=== PATIENT | female | born 1985 | race Caucasian/White ===

== ENCOUNTER 2023-04-14 08:38 | Emergency (ER) | payer MEDICAID, SELFPAY ==
[2023-04-14 08:45] VITALS: BP 140/60; PULSE 53; O2SAT 96
[2023-04-14 08:47] VITALS: BP 127/95; PULSE 89; RESP 16; TEMP 36.3; O2SAT 99; BMI 23.6
--- NOTE | 2023-04-14 09:09 | ED_ITS ---
HPI - Back Pain/Injury General Chief Complaint: Back Pain/Injury Stated Complaint: BACK PAIN Time Seen by Provider: 04/14/23 08:50 Source: patient Mode of arrival: ambulatory Limitations: no limitations History of Present Illness HPI Narrative: 37-year-old female presents to the emergency department lower back pain for the past few months worsening acutely over the past few days. Patient reports that this past pain feels like her typical however not going away. She reports it likely started after she bent over to grab something. Patient denies blunt trauma. Denies urinary/bowel incontinence/retention, fevers, chills, lower extremity weakness, nausea, vomiting, abdominal pain, headache, vision changes, chest pain, shortness of breath, fevers and chills. Patient reports she is able to walk however with discomfort Related Data Previous Rx's Medication Instructions Recorded ketorolac 10 mg tablet 10 mg PO TID PRN pain 5 days #15 04/14/23 tabs lidocaine 5 % topical patch 1 patch topical DAILY PRN pain #15 04/14/23 ea Allergies Allergy/AdvReac Type Severity Reaction Status Date / Time Penicillins [PENICILLINS] Allergy Severe RASH Unverified 01/17/20 17:48 Review of Systems Review of Systems: Constitutional : No Weight loss, No Fever, No Chills, ENT/Mouth : No Hearing loss, No Ear Pain, No Nasal Congestion, No Sinus Pain, No Hoarseness, No sore throat, No Rhinorrhea, No Swallowing Difficulty Cardiovascular : No Chest Pain, No SOB Respiratory : No Cough, No Dyspnea Gastrointestinal : No Nausea, No Vomiting, No Diarrhea, No abdominal Pain, No Hematochezia, No Melena Genitourinary : No Dysuria, No Urinary Frequency, No Hematuria, No Urinary Incontinence, Musculoskeletal : positive back pain Skin : No Skin Lesions, No rash Neuro : No Weakness, No Numbness, No Paresthesias, no loss of bowel or bladder incontinence, no saddle anesthesia Yes all other systems are reviewed and are negative [facility] Past Medical History Attestation statement: The following information was validated with the patient. Source: old records reviewed and nursing notes reviewed Social History Social History Advance Directives: No Advance Directives Information Provided: No Physical Exam Vital Signs: Vital Signs: Last Vital Signs Temp 97.3 F 04/14/23 08:47 Pulse 89 04/14/23 08:47 Resp 16 04/14/23 08:47 BP 127/95 H 04/14/23 08:47 Pulse Ox 99 04/14/23 08:47 O2 Del Method Room Air 04/14/23 08:47 BMI result Body Mass Index 23.6 vss Appearance: Alert.? Oriented X3.? No acute distress.? Head: Normocephalic, atraumatic, no step-offs or deformities Eyes: Pupils equal, round and reactive to light.? ENT: Pharynx normal.? Neck: Normal inspection.? Neck supple.? CVS: Normal heart rate and rhythm.? Pulses normal.? Respiratory: No respiratory distress.? Breath sounds normal.? Abdomen: Soft and nontender.? Skin: Skin warm and dry.? Normal skin color.? Normal skin turgor.? Extremities: No lower extremity edema.? No calf ttp. 5/5 strength to bilateral upper and lower extremities Back: No midline tenderness, no C-spine tenderness, full range of motion, no CVA tenderness bilaterally + bilateral lumbar paraspinous tenderness. No midline tenderness Neuro: Oriented X 3.? No motor deficit.? No sensory deficit. CN 2-12 intact . Ambulating with steady gait normal coordination. No foot drop. Normal sensation distally Medications Administered Discontinued Medications Generic Name Dose Route Start Last Admin Trade Name Freq PRN Reason Stop Dose Admin Ketorolac Tromethamine 30 mg 04/14/23 09:08 04/14/23 09:51 Ketorolac Tromethamine 30 Mg/Ml Vial IM 04/14/23 09:09 30 mg ONCE ONE Administration Medical Decision Making Medical Decision Making [facility] Narrative: 0850 37-year-old female presents with lower back pain that is been going on for months, acutely worsening this morning, no associated trauma however it may have started after she bent over to grab something. No red flags and Bilateral lumbar paraspinous tenderness. No midline tenderness. No saddle paresthesias. No foot drop. Normal sensation distally History and physical exam concerning for lumbar sprain or strain. Unlikely cauda equina, epidural abscess, cord compression. Other differentials include lumbago, herniated disc. Plan at this time is to give it pain control the Lidoderm patches. No red flag symptoms no indication for imaging. Differential Diagnosis Differential Diagnoses: The differential diagnosis associated with the presentation includes History and physical exam concerning for lumbar sprain or strain. Unlikely cauda equina, epidural abscess, cord compression. Other differentials include lumbago, herniated disc. Admission/Observation Consideration of admission/observation: Escalation of care including admission/observation considered Tests considered The following testing was considered but not selected: Considered MRI and CT as well as x-ray however no acute trauma no red flag symptoms no signs of cord compression. No indication Critical Care Time Critical Care Time Critical Care Time: No Discharge Plan Discharge Clinical Impression: Strain of lumbar region Patient Disposition: Home, Self-Care Instructions: Muscle Strain (DC), Back Pain (ED), Lower Back Exercises (ED) Additional Instructions: Take your medications as prescribed. If you were prescribed antibiotics today, it is important that you take your medication to their entirety, do not skip any doses, do not finish them early. Follow-up with your primary care provider this week. Return to the emergency department with new or worsening symptoms. Such as fevers, chills, chest pain, shortness of breath, nausea, vomiting, dizziness, headache, vision changes, lethargy In case of emergency call 911 Prescriptions: New ketorolac 10 mg tablet 10 mg PO TID PRN (Reason: pain) 5 Days Qty: 15 0RF lidocaine 5 % adhesive patch,medicated 1 patch topical DAILY PRN (Reason: pain) Qty: 15 0RF Rx Instructions: leave on most painful area for up to 12 hrs Referrals: ED Physician,Generic [Physician] - 2 days Stand Alone Forms: Work/School Release
[2023-04-14] MEDS: Ketorolac Tromethamine 30 MG/ML VIAL IM (09:51)
--- NOTE | 2023-04-14 09:58 | PC.NURSE ---
patient was able to ambulate with steady gait, medicated per the MAR for pain. provider added lidocaine patch for patient as well. continues to rest quietly in room.
[2023-04-14] MEDS: Lidocaine 4 % Patch ADH..PATCH 1 PATCH TRANSDERMA (10:14)
== END 2023-04-14 10:26 | disposition home or self-care (01) ==
PROVIDERS: Emergency Provider Student in an Organized Health Care Education/Training Program
DX: S39.012A Strain of muscle, fascia and tendon of lower back, initial encounter (principal); X58.XXXA Exposure to other specified factors, initial encounter; Y93.9 Activity, unspecified; Y92.9 Unspecified place or not applicable; Y99.9 Unspecified external cause status
CPT/HCPCS: 96372; 99284; J1885

== ENCOUNTER 2023-05-14 12:54 | Emergency (ER) | payer MEDICAID, SELFPAY ==
--- NOTE | ~2023-05-14 | XR_ITS ---
EXAMINATION: XR SACROILIAC JOINTS BILATERAL, 3 VIEWS XR LUMBAR SPINE, 3 VIEWS CLINICAL INFORMATION: Back pain COMPARISON: Lumbar spine radiograph from 12/18/2014 TECHNIQUE: 3 views of the sacroiliac joints 3 views of the lumbar spine FINDINGS: No acute visible fracture dislocation. Slight levocurvature of the lumbar spine. Bilateral sacroiliac joints are patent. There are changes of the lumbosacral junction. Vertebral body heights and disc spaces are maintained. Posterior elements are intact. Paraspinal soft tissues are unremarkable. Visualized bowel gas is unremarkable. XR/XR sacroiliac joint min 3V IMPRESSION: 1. No acute visible fracture or dislocation. 2. Degenerative changes of the lumbosacral junction.
--- NOTE | ~2023-05-14 | XR_ITS ---
EXAMINATION: XR SACROILIAC JOINTS BILATERAL, 3 VIEWS XR LUMBAR SPINE, 3 VIEWS CLINICAL INFORMATION: Back pain COMPARISON: Lumbar spine radiograph from 12/18/2014 TECHNIQUE: 3 views of the sacroiliac joints 3 views of the lumbar spine FINDINGS: No acute visible fracture dislocation. Slight levocurvature of the lumbar spine. Bilateral sacroiliac joints are patent. There are changes of the lumbosacral junction. Vertebral body heights and disc spaces are maintained. Posterior elements are intact. Paraspinal soft tissues are unremarkable. Visualized bowel gas is unremarkable. XR/XR lumbar spine 2-3V IMPRESSION: 1. No acute visible fracture or dislocation. 2. Degenerative changes of the lumbosacral junction.
[2023-05-14 14:32] VITALS: BP 144/92; PULSE 81; RESP 18; TEMP 36.8; O2SAT 97; BMI 28.7
--- NOTE | 2023-05-14 14:32 | ED_ITS ---
HPI - Back Pain/Injury General Chief Complaint: Back Pain/Injury Stated Complaint: back pain Time Seen by Provider: 05/14/23 16:39 Source: patient and RN notes reviewed Mode of arrival: ambulatory Limitations: no limitations History of Present Illness HPI Narrative: This is a 37 year old female presenting to the emergency department with complaints of atraumatic back pain since this morning. Patient denies any r ecent trauma, injury, heavy lifting or falls. She states that the pain worsens with movement and with palpation. Denies any urinary symptoms. No urinary or bowel incontinence. No saddle anesthesia. Denies any pain radiating to her upper or lower extremities. She states that last month she had similar symptoms which improved after receiving lidocaine patches as well as Toradol. Denies any fevers, chills, chest pain, shortness breast, abdominal pain, nausea vomiting or diarrhea. No dysuria, hematuria, urinary frequency or urgency. No other complaints or concerns at this time. MD elicited complaint: back pain Pertinent past history: prior back pain Onset (ago): day(s) Timing: constant Severity: moderate Similar Symptoms Previously: Yes Quality: aching Location: lumbar spine, thoracic spine, right lower back and left lower back Exacerbating factors: none Relieving factors: none Associated symptoms: denies other symptoms Work related injury: No Related Data Previous Rx's Medication Instructions Recorded ketorolac 10 mg tablet 10 mg PO TID PRN pain 5 days #15 04/14/23 tabs lidocaine 5 % topical patch 1 patch topical DAILY PRN pain #15 04/14/23 ea acetaminophen 500 mg tablet 500 mg PO Q6H PRN pain #30 tabs 05/14/23 (Tylenol Extra Strength) cyclobenzaprine 10 mg tablet 10 mg PO TID PRN muscle spasm #14 05/14/23 tabs ibuprofen 600 mg tablet 600 mg PO Q6H PRN pain #30 tabs 05/14/23 Allergies Allergy/AdvReac Type Severity Reaction Status Date / Time Penicillins [PENICILLINS] Allergy Severe RASH Verified 05/14/23 14:31 Review of Systems Review of Systems: Yes all other systems are reviewed and are negative Constitutional: Constitutional: Reports as per [facility] Social History Social History Advance Directives: No Advance Directives Information Provided: Yes Physical Exam Vital Signs: Vital Signs: Last Vital Signs Temp 98.3 F 05/14/23 14:32 Pulse 81 01/13/24 14:32 Resp 18 05/14/23 14:32 BP 144/92 H 05/14/23 14:32 Pulse Ox 97 05/14/23 14:32 O2 Del Method Room Air 05/14/23 14:32 BMI result Body Mass Index 28.7 Const: General: cooperative, comfortable and no acute distress Orientation/consciousness: patient oriented x3 Limitations: no limitations HEENT: Head: Yes normal to inspection, Yes normocephalic and Yes atraumatic Ears: hearing grossly normal bilaterally General nose exam: Normal external nose present Face and sinus: Yes normal facial exam Mouth: Normal oral and palatal mucosa present, oropharynx normal and moist mucous membranes Throat: Yes posterior oropharynx normal Eyes: General: appearance normal, both eyes and all related structures Eyelids: Yes eyelids normal Conjunctivae: conjunctivae normal Sclerae: sclerae normal Pupils: Equal, round and reactive pupils present EOM: EOMs intact bilaterally Neck: Neck: Yes normal visual inspection, Yes full ROM and Yes no lymphadenopathy Lymphatic: no lymphadenopathy noted Chest: Chest palpation & inspection: normal inspection of the chest Resp: Effort & Inspection: normal respiratory effort and able to speak in complete sentences Auscultation: clear to auscultation bilaterally, no crackles, no rales, no rhonchi and no wheezes Cardio: Rate: regular rate Rhythm: regular rhythm Heart sounds: S1 normal heart sound present and S2 normal heart sound present GI: Inspection: Yes normal to inspection Back/Spine/Pelvis: Other: TTP over bilateral trapezius muscles and bilateral lumbar paraspinous muscles. Strength 5/5 in upper and lower extremities. No midline spine tenderness TTP over SI joints bilaterally. Skin: General skin exam: no rashes or lesions noted Trauma: no lacerations or abrasions Wounds: no wounds Neuro: General: patient oriented x3 and moves all extremities Cranial nerves: Yes Equal, round and reactive pupils present Extrem: General: Yes normal to inspection Right upper extremity: normal to inspection Left upper extremity: normal to inspection Right lower extremity: normal to inspection Left lower extremity: normal to inspection Course Course Course Narrative: This is an RME: Additional HPI, ROS, PE not included below will be deferred to primary provider. This is a [id number]-female presenting to the ER with a complaint of bilateral shoulder and back pain since this AM. Patient was seen here about 1 month ago for similar symptoms. Patient has tenderness palpation along the bilateral SI joints, has not had x-ray. Will obtain x-rays, likely would benefit from muscle relaxants and NSAIDs. No urinary symptoms. No saddle anesthesia No change in activity Plan: X-ray Medical Decision Making Medical Decision Making MDM Narrative: This is a 37-year-old female presenting to the emergency department with complaints of low back pain since today. She has had similar back pain in the past, denies taking any medications prior to her arrival. On arrival blood pressure mildly elevated 144/92, all other vital signs within normal limits. Patient has tenderness palpation along the bilateral lumbar paraspinous muscles and bilateral trapezius muscles, no midline tenderness. She also has tenderness palpation along the bilateral SI joints. No saddle anesthesia. No foot drop, distal sensation circulation intact. This patient presents with back pain most consistent with lumbar spasm. Differential diagnoses includes lumbago versus musculoskeletal spasm / strain versus sciatica.No back pain red flags on history or physical. Presentation not consistent with malignancy (lack of history of malignancy, lack of B symptoms), fracture (no trauma, no bony tenderness to palpation), cauda equina (no bowel or urinary incontinence/retention, no saddle anesthesia, no distal weakness),pyelonephritis (afebrile, no CVAT, no urinary symptoms). Given tenderness palpation along the SI joints, x-rays were obtained, revealing degenerative changes in the lumbosacral junction. Discussed findings with patient. Discharged on ibuprofen, Lidoderm patches, and muscle relaxants. Given return precautions. Patient understands and agrees with plan. Patient stable for discharge. Differential Diagnosis Differential Diagnoses: The differential diagnosis associated with the presentation includes See above Admission/Observation Consideration of admission/observation: Escalation of care including admission/observation considered Patient would have been admitted to the hospital had her work up had any findings where hospital admission was appropriate and her clinical presentation warranted hospital admission. Radiology Impression Discussion of test interpretation with radiology: I have reviewed the radiologist's reading. Radiologist Impression: EXAMINATION: XR SACROILIAC JOINTS BILATERAL, 3 VIEWS XR LUMBAR SPINE, 3 VIEWS CLINICAL INFORMATION: Back pain COMPARISON: Lumbar spine radiograph from 12/18/2014 TECHNIQUE: 3 views of the sacroiliac joints 3 views of the lumbar spine FINDINGS: No acute visible fracture dislocation. Slight levocurvature of the lumbar spine. Bilateral sacroiliac joints are patent. There are changes of the lumbosacral junction. Vertebral body heights and disc spaces are maintained. Posterior elements are intact. Paraspinal soft tissues are unremarkable. Visualized bowel gas is unremarkable. XR/XR sacroiliac joint min 3V IMPRESSION: 1. No acute visible fracture or dislocation. 2. Degenerative changes of the lumbosacral junction. Dictated By: Tera Davis MD Discharge Plan Discharge Clinical Impression: Back pain Patient Disposition: Home, Self-Care Instructions: Acute Low Back Pain (ED) Additional Instructions: You were seen in the emergency department due to back pain. Your x-ray shows degenerative changes in your lumbosacral junction. Please take prescribed medication as directed. Gentle stretching, massage, moist heat, can help with your symptoms. Follow-up with your primary care physician, call on Tuesday to make an appointment. Physical therapy can be very beneficial for your symptoms. If any new or worsening symptoms occur including but not limited to numbness and tingling anterior groin, urinary or bowel incontinence, please report to the emergency room. Usted fue atendido en urgencias por dolor de espalda. Heller radiograf?a muestra cambios degenerativos en heller uni?n lumbosacra. [place] los medicamentos recetados seg?n las indicaciones. Los estiramientos suaves, los masajes y el calor h?medo pueden ayudar con roshni s?ntomas. Jada seguimiento con heller m?dico de atenci?n primaria, llame el meggan para programar bro elvie. La fisioterapia puede ser muy beneficiosa para roshni s?ntomas. Si se presenta alg?n s?ntoma nuevo o que empeora, incluidos, entre otros, entumecimiento y hormigueo en la amrit anterior, incontinencia urinaria o intestinal, informe a la keely de emergencias. Prescriptions: New ibuprofen 600 mg tablet 600 mg PO Q6H PRN (Reason: pain) Qty: 30 0RF acetaminophen [Tylenol Extra Strength] 500 mg tablet 500 mg PO Q6H PRN (Reason: pain) Qty: 30 0RF cyclobenzaprine 10 mg tablet 10 mg PO TID PRN (Reason: muscle spasm) Qty: 14 0RF No Action ketorolac 10 mg tablet 10 mg PO TID PRN (Reason: pain) 5 Days Qty: 15 0RF lidocaine 5 % adhesive patch,medicated 1 patch topical DAILY PRN (Reason: pain) Qty: 15 0RF Rx Instructions: leave on most painful area for up to 12 hrs Interventions: ED Discharge Assessment Last Done: 05/14/23 16:46 Discharge Date/Time: 05/14/23 16:48
== END 2023-05-14 16:48 | disposition home or self-care (01) ==
LOC: HO.ED 16:40
PROVIDERS: Emergency Provider Internal Medicine
DX: M54.89 Other dorsalgia (principal)
CPT/HCPCS: 72100; 72202; 99283

== ENCOUNTER 2023-09-19 15:02 | Emergency (ER) | payer MEDICAID, SELFPAY ==
[2023-09-19 15:49] VITALS: BP 126/76; PULSE 90; O2SAT 98
--- NOTE | 2023-09-19 15:57 | ED.BACK ---
HPI - Back Pain/Injury General Chief Complaint: Back Pain/Injury Stated Complaint: Pt states chronic pain with increasing pain Source: patient and RN notes reviewed Mode of arrival: EMS Limitations: no limitations History of Present Illness ED Provider: Chronic pain HPI Narrative: This is a 37-year-old female, with a history of chronic back pain, who presents emergency department complaints of acute on chronic low back pain, and bilateral shoulder and upper back pain. Patient states that she has had ongoing symptoms for many months. She has been seen by her primary care physician who states that there is nothing that they can do for her. Patient expresses concerns for arthritis. She denies any fevers, chills, headaches, dizziness, blurred vision, chest pain, shortness of breath, abdominal pain, nausea, vomiting or diarrhea. She has been taking Naprosyn for her symptoms which has provided her with some relief. She states that when she comes to the emergency room she received an injection which provides her with relief. Denies any numbness, tingling, or weakness. No urinary or bowel retention or incontinence. No saddle anesthesia. No other complaints or concerns at this time. MD elicited complaint: back pain Pertinent past history: prior back pain Onset (ago): month(s) Timing: constant Severity: moderate Similar Symptoms Previously: Yes Quality: aching Location: right upper back and left upper back Radiation: none Exacerbating factors: movement Relieving factors: immobilization Associated symptoms: denies other symptoms Work related injury: No Related Data Previous Rx's ?Medication ?Instructions ?Recorded ketorolac 10 mg tablet 10 mg PO TID PRN pain 5 days #15 04/14/23 tabs lidocaine 5 % topical patch 1 patch topical DAILY PRN pain #15 04/14/23 ea acetaminophen 500 mg tablet 500 mg PO Q6H PRN pain #30 tabs 05/14/23 (Tylenol Extra Strength) cyclobenzaprine 10 mg tablet 10 mg PO TID PRN muscle spasm #14 05/14/23 tabs ibuprofen 600 mg tablet 600 mg PO Q6H PRN pain #30 tabs 05/14/23 acetaminophen 325 mg tablet 650 mg (2 x 325 mg) PO Q6H PRN 09/19/23 (Tylenol) pain #30 tabs Allergies Allergy/AdvReac Type Severity Reaction Status Date / Time Penicillins [PENICILLINS] Allergy Severe RASH Verified 09/19/23 16:00 Review of Systems Review of Systems: Yes all other systems are reviewed and are negative Constitutional: Constitutional: Reports as per [facility] Past Medical History Attestation statement: The following information was validated with the patient. Physical Exam Const: General: cooperative, comfortable and no acute distress Orientation/consciousness: patient oriented x3 Limitations: no limitations HEENT: Head: Yes normal to inspection, Yes normocephalic and Yes atraumatic Ears: hearing grossly normal bilaterally General nose exam: Normal external nose present Face and sinus: Yes normal facial exam Mouth: Normal oral and palatal mucosa present, oropharynx normal and moist mucous membranes Throat: Yes posterior oropharynx normal Eyes: General: appearance normal, both eyes and all related structures Eyelids: Yes eyelids normal Conjunctivae: conjunctivae normal Sclerae: sclerae normal Pupils: Equal, round and reactive pupils present EOM: EOMs intact bilaterally Neck: Other: Tenderness palpation along the trapezius muscles bilaterally Neck: Yes normal visual inspection, Yes full ROM and Yes no lymphadenopathy Lymphatic: no lymphadenopathy noted Chest: Chest palpation & inspection: normal inspection of the chest Resp: Effort & Inspection: normal respiratory effort and able to speak in complete sentences Auscultation: clear to auscultation bilaterally, no crackles, no rales, no rhonchi and no wheezes Cardio: Rate: regular rate Rhythm: regular rhythm Heart sounds: S1 normal heart sound present and S2 normal heart sound present GI: Inspection: Yes normal to inspection Skin: General skin exam: no rashes or lesions noted Trauma: no lacerations or abrasions Wounds: no wounds Neuro: General: patient oriented x3 and moves all extremities Cranial nerves: Yes Equal, round and reactive pupils present Extrem: Other: Bilateral shoulders are mildly tender to palpation throughout entire joint, full range of motion, no overlying skin changes or erythema. General: Yes normal to inspection Right upper extremity: normal to inspection Left upper extremity: normal to inspection Right lower extremity: normal to inspection Left lower extremity: normal to inspection Medical Decision Making Medical Decision Making MDM Narrative: This is a 37-year-old female, with a history of chronic pain, who presents emergency department with complaints of acute on chronic back pain. On arrival, vital signs within normal limits. Patient has been seen here twice for similar symptoms. States that she has pain in her upper back as well as low back. She has been seen by her primary care physician for this, has been to physical therapy with minimal relief. She has not been seen by Rheumatology. This patient presents with back pain most consistent with acute on chronic pain Differential diagnoses includes lumbago versus musculoskeletal spasm / strain versus sciatica.No back pain red flags on history or physical. Presentation not consistent with malignancy (lack of history of malignancy, lack of B symptoms), fracture (no trauma, no bony tenderness to palpation), cauda equina syndrome (no bowel or urinary incontinence/retention, no saddle anesthesia, no distal weakness), pyelonephritis (afebrile, no CVAT, no urinary symptoms). Given the clinical picture, no indication for imaging at this time. Patient medicated with Toradol. Given return precautions. She understands agrees with plan. Patient stable for discharge. Differential Diagnosis Differential Diagnoses: The differential diagnosis associated with the presentation includes see above Discharge Plan Discharge Clinical Impression: Chronic pain Patient Disposition: Home, Self-Care Instructions: Pain Management (ED), Chronic Pain (ED), Warm Compress or Soak (ED) Additional Instructions: You were seen in the emergency room for chronic pain. I am giving you a referral to a content development manager, you can call to make an appointment. Please take prescribed medication as directed, continue taking the Naprosyn as this can help with anti-inflammatory properties. Rest, gentle stretching, massage, heat or ice, can help with your symptoms. If any new or worsening symptoms occur including but not limited to chest pain, shortness of breath, lightheadedness, dizziness, headaches, weakness please return for re-evaluation. Follow-up with your primary care physician. Prescriptions: New acetaminophen [Tylenol] 325 mg tablet 650 mg PO Q6H PRN (Reason: pain) Qty: 30 0RF No Action ketorolac 10 mg tablet 10 mg PO TID PRN (Reason: pain) 5 Days Qty: 15 0RF lidocaine 5 % adhesive patch,medicated 1 patch topical DAILY PRN (Reason: pain) Qty: 15 0RF Rx Instructions: leave on most painful area for up to 12 hrs ibuprofen 600 mg tablet 600 mg PO Q6H PRN (Reason: pain) Qty: 30 0RF acetaminophen [Tylenol Extra Strength] 500 mg tablet 500 mg PO Q6H PRN (Reason: pain) Qty: 30 0RF cyclobenzaprine 10 mg tablet 10 mg PO TID PRN (Reason: muscle spasm) Qty: 14 0RF Referrals: [facility] Rheumatology Service [Provider Group] Print Language: Stateless
[2023-09-19 15:58] VITALS: BP 132/86; PULSE 90; RESP 16; TEMP 36.3; O2SAT 97; BMI 27.9
[2023-09-19] MEDS: Ketorolac Tromethamine 15 MG/ML VIAL IM (16:15)
[2023-09-19 16:18] VITALS: BP 132/86; PULSE 90; RESP 16; TEMP 36.3; O2SAT 97
== END 2023-09-19 16:19 | disposition home or self-care (01) ==
PROVIDERS: Emergency Provider Emergency Medicine
DX: G89.4 Chronic pain syndrome (principal); M54.50 Low back pain, unspecified; M25.512 Pain in left shoulder; M25.511 Pain in right shoulder
CPT/HCPCS: 96372; 99283; 99284; J1885

== ENCOUNTER 2023-11-25 10:53 | Emergency (ER) | payer MEDICAID, SELFPAY ==
--- NOTE | ~2023-11-25 | XR_ITS ---
EXAMINATION: XR CHEST CLINICAL INFORMATION: Shortness of breath. Body aches. COMPARISON: 09/17/2017 TECHNIQUE: 2 views of the chest were obtained. FINDINGS: The lungs are well expanded. No focal consolidation. No pleural effusion. Cardiac silhouette is unchanged. XR/XR chest 2V IMPRESSION: No acute abnormality.
[2023-11-25 11:18] VITALS: BP 128/71; PULSE 87; RESP 20; TEMP 36.8; O2SAT 98; BMI 28.0
--- NOTE | 2023-11-25 11:19 | ED.GENADULT ---
HPI - General Adult General Chief complaint: General Medical Stated complaint: multiple complaints Time Seen by Provider: 11/25/23 11:50 Source: patient Mode of arrival: ambulatory Limitations: no limitations History of Present Illness HPI narrative: Patient is a 38 year old female who presents to the emergency department for evaluation of diffuse body pain. Reports pain is 8/10. She feels it to neck, bilateral shoulders, again headaches. When her pain becomes severe she feels like she is short of breath. She had an episode of the shortness of breath last night but she denies any URI symptoms, known sick contacts, cough, shortness of breath at this time. She denies chest pain abdominal pain nausea vomiting. She denies urogenital symptoms. She states that this pain has been chronic since December of 2022, she has been evaluated by her primary care doctor, reportedly has had different testing done, x-rays, hormone studies all of which have come back normal. She reports that all this pain is typical when her menstrual cycle is coming, and as soon as her menstrual cycle arrives her pain nearly completely goes away. She has been prescribed naproxen by her primary care doctor but she does not like to take it due to ?consequences?, when asked for further elaboration she states ?it does not help anyway so it does not matter?. She states that she has been seen in the emergency department before for this pain and has significant relief with Toradol, she states ?I feel like a new person after?. She is requesting Toradol injection at this time. She denies possibility of , reporting a history of tubal ligation. She states she has an appointment with ?a specialist? on November 28, does not recall who with a specialist is but she was referred from the emergency department. 38 yo kinyarwanda speaking female here for eval of 8/10 diffuse body pain, neck pain/ pressure, and headaches beginning at 8pm last night. reports assoc SOB which began around 1am today. denies sick contacts. 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 denies fever/chills, sore throat, cough, chest pain. no injury/trauma. patient requesting toradol injection. tearful on exam. + lungs CTA b/l. Posterior oropharynx WNL. no midline spinous tenderness or step off. Related Data Previous Rx's ?Medication ?Instructions ?Recorded ketorolac 10 mg tablet 10 mg PO TID PRN pain 5 days #15 04/14/23 tabs lidocaine 5 % topical patch 1 patch topical DAILY PRN pain #15 04/14/23 ea acetaminophen 500 mg tablet 500 mg PO Q6H PRN pain #30 tabs 05/14/23 (Tylenol Extra Strength) cyclobenzaprine 10 mg tablet 10 mg PO TID PRN muscle spasm #14 05/14/23 tabs ibuprofen 600 mg tablet 600 mg PO Q6H PRN pain #30 tabs 05/14/23 acetaminophen 325 mg tablet 650 mg (2 x 325 mg) PO Q6H PRN 09/19/23 (Tylenol) pain #30 tabs Allergies Allergy/AdvReac Type Severity Reaction Status Date / Time Penicillins [PENICILLINS] Allergy Severe RASH Verified 11/25/23 11:25 Review of Systems Review of Systems: Yes all other systems are reviewed and are negative [facility] Past Medical History Attestation statement: The following information was validated with the patient. Source: old records reviewed Social History Social History Advance Directives: No Advance Directives Information Provided: Yes Do you have a plan to hurt others: No Plan Physical Exam ED Vital Signs: Vital Signs - 24 hr 11/25/23 11:18 Temperature 98.2 F Pulse Rate 87 Respiratory Rate 20 Blood Pressure 128/71 Pulse Oximetry 98 Oxygen Delivery Method Room Air BMI result Body Mass Index 28.0 Appearance: Alert.?Oriented to person, place and time. No acute distress.?Normal affect. Neck: Normal inspection.? Neck supple.?? CVS: Heart sounds normal. Normal heart rate and rhythm.? Pulses normal.?? Respiratory: No respiratory distress.? Lung sounds clear to auscultation bilaterally?? Abdomen: Soft and non-tender. Normoactive bowel sounds. ? Skin: Skin warm and dry.? Normal skin color.? Normal skin turgor.?? Extremities: No lower extremity edema.? No calf ttp?. Tenderness upon palpation to the bilateral shoulders, entirely throughout the back upper and lower. No midline spinous tenderness, step-offs, deformities. Neuro: Moves all extremities spontaneously. Sensation intact bilaterally. CN II-XII intact. No focal neuro deficits. Ambulates with normal steady gait. Course Course Course Narrative: This is a Rapid Medical Examination (RME) performed by Sonia Mendoza PA-C in triage. Full HPI, ROS, assessment and treatment plan per primary provider in the Main ED. 38 yo kinyarwanda speaking female here for eval of 8/10 diffuse body pain, neck pain/ pressure, and headaches beginning at 8pm last night. reports assoc SOB which began around 1am today. denies sick contacts. 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 denies fever/chills, sore throat, cough, chest pain. no injury/trauma. patient requesting toradol injection. tearful on exam. + lungs CTA b/l. Posterior oropharynx WNL. no midline spinous tenderness or step off. Plan: basic labs, viral serology ordered Medications Administered Discontinued Medications Generic Name Dose Route Start Last Admin Trade Name Freq PRN Reason Stop Dose Admin Ketorolac Tromethamine 30 mg 11/25/23 11:59 11/25/23 12:17 Ketorolac Tromethamine 30 Mg/Ml Vial IM 11/25/23 12:00 30 mg ONCE ONE Administration Medical Decision Making Medical Decision Making [facility] Narrative: Patient is a 38 female who presents emergency department for evaluation of acute on chronic bilateral shoulder and back pain as per HPI, she endorses that these are associated with her menstrual cycle which she expects to be upcoming. Her symptoms typically resolve with her menstrual cycle. In the past she has only received relief with Toradol injection, she is not agreeable to taking oral NSAIDs due to concern for potential side effects and there ineffectiveness in the past. Overall she is well-appearing, nontoxic, afebrile. Ambulatory with a steady gait. Moving all extremities appropriately with full range of motion. No bladder bowel dysfunction, no neurological deficits, clinically not consistent with cauda equina syndrome, no indication for emergent CT/MRI. Atraumatic, I have low suspicion for any acute fracture subluxation, would defer additional XR imaging. On review of her labs CBC revealing leukocytosis 18.1, normocytic anemia not meeting transfusion criteria, no thrombocytopenia. No electrolyte derangement, no BRAXTON, LFTs within normal range. HCG negative. She has no infectious symptoms, urinalysis with pyuria but squamous epithelial cells present as well, she has no urogenital complaints, I suspect this is likely urogenital contamination, would defer treatment with antibiotic at this time. Viral panel is negative. CXR is without evidence of infiltrate consolidation to suggest pneumonia. I suspect her leukocytosis is likely inflammatory reaction. Her pain has resolved with Toradol as it has in the past. At this time I feel that she is stable for discharge and outpatient follow-up with PCP/specialist as scheduled. Differential Diagnosis Differential Diagnoses: The differential diagnosis associated with the presentation includes (See narrative above) Admission/Observation Consideration of admission/observation: Escalation of care including admission/observation considered (See narrative above) Lab Data MDM Lab Attestation statement: I reviewed the patient's lab results. (See narrative above) 11/25/23 11:30 11/25/23 11:30 Labs: Lab Results 11/25/23 11/25/23 Range/Units 11:30 12:11 WBC 18.1 H (4.8-10.8) X10*3/uL RBC 3.79 L (4.20-5.50) X10*6/uL Hgb 11.7 L (12.0-16.0) g/dl Hct 34.2 L (37.0-47.0) % MCV 90.2 (80.0-98.0) fL MCH 30.9 (27.0-33.0) pg MCHC 34.2 (31.0-35.0) g/dl RDW 12.4 (11.0-16.0) % Plt Count 283 (160-400) X10*3/uL MPV 9.9 (9.4-12.3) fL Immature Gran % (Auto) 0.6 H (0.0-0.4) % Neut % (Auto) 88.1 H (45-73) % Lymph % (Auto) 7.5 L (20-40) % [place] % (Auto) 3.4 (2-11) % Eos % (Auto) 0.1 (0-4) % Baso % (Auto) 0.3 (0-2) % Lymph # (Auto) 1.4 (1.2-4.9) X10*3/uL [place] # (Auto) 0.6 (0.1-1.2) X10*3/uL Eos # (Auto) 0.0 (0.0-0.4) X10*3/uL Baso # (Auto) 0.1 (0.0-0.2) X10*3/uL Abs Immat Gran (auto) 0.10 H (0.00-0.03) X10*3/uL Absolute Neuts (auto) 16.0 H (2.0-8.3) x10*3/uL Absolute Nucleated RBC 0.000 (0.0-0.012) X10*3/uL Nucleated RBC % (auto) 0.0 (0.0-0.2) /100WBC Sodium 139 (135-145) mmol/L Potassium 3.7 (3.3-5.1) mmol/L Chloride 106 (96-108) mmol/L Carbon Dioxide 24 (22-29) mmol/L Anion Gap 13 (12-20) BUN 8 L (9-16) mg/dL Creatinine 0.78 (0.5-1.4) mg/dL Estim Creat Clear Calc 81.5 Estimated GFR > 60 Random Glucose 146 H (60-115) mg/dL Calcium 10.0 (8.4-10.2) mg/dL Magnesium 1.8 (1.6-2.6) mg/dL Total Bilirubin 0.8 (0.0-1.0) mg/dL AST 15 (5-31) U/L ALT 18 (0-31) U/L Alkaline Phosphatase 63 (39-117) U/L Total Protein 7.8 (6.5-8.0) g/dL Albumin 4.6 (3.5-5.0) g/dL Urine Color Yellow Urine Appearance Cloudy Urine pH 5.5 (5.0-9.0) Ur Specific [place] 1.015 (1.005-1.025) Urine Protein Negative (Neg-Trace) mg/dL Urine Glucose (UA) Negative (Negative) mg/dL Urine Ketones Negative (Negative) mg/dL Urine Blood Small (1+) H (Negative) Urine Nitrite Negative (Negative) Ur Leukocyte Esterase Large (3+) H (Negative) Urine RBC 3-5 H (0-2) /HPF Urine WBC >50 H (0-5) /HPF Ur Squamous Epith Cells >20 (0-2) /HPF Urine Bacteria 3+ (None Seen) Hyaline Casts 0-2 (0-2) /LPF Urine Test NEGATIVE (NEGATIVE) Influenza Type A (PCR) NEGATIVE (Negative) Influenza Type B (PCR) NEGATIVE (Negative) RSV RNA Qual (PCR) NEGATIVE (Negative) SARS-CoV-2 RNA (RT-PCR) NEGATIVE (Negative) Independent Historian Clinical information obtained from an independent historian. History obtained from or confirmed by: Spouse External Record Review External record reviewed: Outpatient record Prescription Management I considered prescription management with: Pain Medication (See narrative above) Discharge Plan Discharge Clinical Impression: Back pain Patient Disposition: Home, Self-Care Instructions: Back Pain (ED) Additional Instructions: As discussed, continue taking your medications as prescribed. Follow-up with your specialist as scheduled next week. Continue gentle stretching exercises, massage, warm compresses to the areas this may also help with your symptoms. Physical therapy may also be beneficial as well. Prescriptions: No Action ketorolac 10 mg tablet 10 mg PO TID PRN (Reason: pain) 5 Days Qty: 15 0RF lidocaine 5 % adhesive patch,medicated 1 patch topical DAILY PRN (Reason: pain) Qty: 15 0RF Rx Instructions: leave on most painful area for up to 12 hrs ibuprofen 600 mg tablet 600 mg PO Q6H PRN (Reason: pain) Qty: 30 0RF acetaminophen [Tylenol Extra Strength] 500 mg tablet 500 mg PO Q6H PRN (Reason: pain) Qty: 30 0RF cyclobenzaprine 10 mg tablet 10 mg PO TID PRN (Reason: muscle spasm) Qty: 14 0RF acetaminophen [Tylenol] 325 mg tablet 650 mg PO Q6H PRN (Reason: pain) Qty: 30 0RF Referrals: Physician,Unknown J [Primary Care Provider] - Print Language: Yakut
[2023-11-25 11:35] LABS: MANUAL DIFF FLAG NO
[2023-11-25 11:37] LABS: Basophils Absolute Auto 0.1 X10*3/uL (0.0-0.2); Basophils Percent Auto 0.3 % (0-2); Eosinophils Percent Auto 0.1 % (0-4); Hematocrit 34.2 % (37.0-47.0); Hemoglobin 11.7 g/dl (12.0-16.0); Imm Gran Pct Auto 0.6 % (0.0-0.4); Lymphocytes Absolute Auto 1.4 X10*3/uL (1.2-4.9); Lymphocytes Percent Auto 7.5 % (20-40); Mean Corpuscular HGB Conc 34.2 g/dl (31.0-35.0); Mean Corpuscular Hemoglobin 30.9 pg (27.0-33.0); Mean Corpuscular Volume 90.2 fL (80.0-98.0); Mean Platelet Volume 9.9 fL (9.4-12.3); Monocytes Absolute Auto 0.6 X10*3/uL (0.1-1.2); Monocytes Percent Auto 3.4 % (2-11); Neutrophils Percent Auto 88.1 % (45-73); Platelet Count 283 X10*3/uL (160-400); Red Blood Count 3.79 X10*6/uL (4.20-5.50); Red Cell Distribution Width 12.4 % (11.0-16.0); White Blood Count 18.1 X10*3/uL (4.8-10.8)
[2023-11-25 11:54] LABS: Alanine Aminotransferase 18 U/L (0-31); Albumin Level 4.6 g/dL (3.5-5.0); Alkaline Phosphatase 63 U/L (39-117); Anion Gap 13 (12-20); Aspartate Amino Transferase 15 U/L (5-31); Bilirubin Total 0.8 mg/dL (0.0-1.0); Blood Urea Nitrogen 8 mg/dL (9-16); Carbon Dioxide 24 mmol/L (22-29); Chloride 106 mmol/L (96-108); Creatinine Clr Calc Pharmacy 81.5; Estimated Glomerular Filt Rate > 60; Glucose Random 146 mg/dL (60-115); Magnesium 1.8 mg/dL (1.6-2.6); Potassium 3.7 mmol/L (3.3-5.1); Sodium 139 mmol/L (135-145); Total Protein 7.8 g/dL (6.5-8.0)
[2023-11-25] MEDS: Ketorolac Tromethamine 30 MG/ML VIAL IM (12:17)
[2023-11-25 12:19] LABS: Appearance Urine Cloudy; Color Urine Yellow; Glucose Urine UA Negative (Negative); Leukocyte Esterase Urine Large (3+) (Negative); Nitrite Urine Negative (Negative); PH 5.5 (5.0-9.0); Specific Gravity - Urine 1.015 (1.005-1.025); UMIC TRIGGER UACC YES; UPreg QC Valid YES; Urine Blood Small (1+) (Negative); Urine Ketones Negative (Negative); Urine Pregnancy NEGATIVE (NEGATIVE); Urine Protein Negative (Neg-Trace)
[2023-11-25 12:21] LABS: Influenza A PCR NEGATIVE (Negative); Influenza B PCR NEGATIVE (Negative); Resp Syncy Virus RNA Qual PCR NEGATIVE (Negative); SARS COV2 PCR INHOUSE NEGATIVE (Negative)
[2023-11-25 12:35] LABS: Bacteria Urine 3+ (None Seen); Hyaline Casts Urine 0-2 /LPF (0-2); Squamous Epithelial Cell Urine >20 /HPF (0-2); UACC Culture Trigger YES; WBC Urine >50 /HPF (0-5)
[2023-11-25 13:26] VITALS: BP 128/71; PULSE 87; RESP 20; TEMP 36.8
[2023-11-25 13:27] VITALS: BP 128/71; PULSE 87; RESP 20; TEMP 36.8
== END 2023-11-25 13:27 | disposition home or self-care (01) ==
PROVIDERS: Nurse Practitioner Family; Physician Assistant Medical; Emergency Provider Emergency Medicine
DX: M54.50 Low back pain, unspecified (principal); M54.6 Pain in thoracic spine; M79.18 Myalgia, other site; R06.02 Shortness of breath; Z03.818 Encounter for observation for suspected exposure to other biological agents ruled out
CPT/HCPCS: 0241U; 36415; 71046; 80053; 81001; 81025; 83735; 85025; 87086; 96372; 99283; 99284; J1885

== ENCOUNTER 2024-05-21 18:36 | Emergency (ER) | payer MEDICAID, SELFPAY ==
--- NOTE | ~2024-05-21 | XR_ITS ---
CLINICAL HISTORY: cough, cp 2 view chest x-ray. Comparison: CR/MA/SR - XR CHEST 2V - 11/25/23 11:35 EDT Findings: The lungs appear clear. There is no consolidation, effusion, or nodule identified. Cardiomediastinal silhouette is within normal limits. IMPRESSION: No acute cardiopulmonary abnormality. This document has been electronically signed by: Danny Weber MD on 05/21/2024 20:36:01
--- NOTE | 2024-05-21 18:37 | ECG_ITS ---
Test Reason : CP Blood Pressure : */* mmHG Vent. Rate : 63 BPM Atrial Rate : 63 BPM P-R Int : 114 ms QRS Dur : 80 ms QT Int : 390 ms P-R-T Axes : 36 60 47 degrees QTcB Int : 399 ms Normal sinus rhythm with sinus arrhythmia Normal ECG No previous ECGs available Referred By: Kathryn Pang Electronically Signed By: SANKET GUERRA MD
[2024-05-21 19:35] VITALS: BP 128/53; PULSE 67; RESP 20; TEMP 36.6; O2SAT 99; BMI 28.3
--- NOTE | 2024-05-21 19:38 | ED_ITS ---
HPI - Chest Pain General Chief Complaint: Upper Respiratory Symptoms Stated Complaint: chest pain Time Seen by Provider: 05/21/24 22:49 Source: patient, old records reviewed and rate manager Mode of arrival: ambulatory Limitations: no limitations History of Present Illness ED Provider: LUIS FELIPE GODINEZ narrative: 38 yo female with PMH of asthma who had flu like illness last week her PCP started her on prednisone which she completed. Today she felt a tight chest and shortness of breath. She did not try her inhaler because she wasn't coughing, no recent travel, procedures, no OCP use. She notes her chest wall is sore. No fevers, no production of sputum. She ran out of her albuterol liquid MD complaint: chest pain Onset (ago): day(s) (1) Timing of current episode: episodic Prior episodes: Yes Onset: during rest and during exertion Pain location: substernal Pain radiation: none Severity: mild Quality: tightness Relieving factors: nothing Exacerbating factors: supine and movement Context: recent illness Associated symptoms: dyspnea Treatment prior to arrival: none Related Data Previous Rx's ?Medication ?Instructions ?Recorded ketorolac 10 mg tablet 10 mg PO TID PRN pain 5 days #15 04/14/23 tabs lidocaine 5 % topical patch 1 patch topical DAILY PRN pain #15 04/14/23 ea acetaminophen 500 mg tablet 500 mg PO Q6H PRN pain #30 tabs 05/14/23 (Tylenol Extra Strength) cyclobenzaprine 10 mg tablet 10 mg PO TID PRN muscle spasm #14 05/14/23 tabs ibuprofen 600 mg tablet 600 mg PO Q6H PRN pain #30 tabs 05/14/23 acetaminophen 325 mg tablet 650 mg (2 x 325 mg) PO Q6H PRN 09/19/23 (Tylenol) pain #30 tabs albuterol sulfate 2.5 mg/3 mL 2.5 mg (3 mL) inhalation Q4-6H PRN 05/21/24 (0.083 %) solution for nebulization bronchospasm #75 mL cyclobenzaprine 10 mg tablet 10 mg PO TID PRN muscle spasm #20 05/21/24 tabs Allergies Allergy/AdvReac Type Severity Reaction Status Date / Time Penicillins [PENICILLINS] Allergy Severe RASH Verified 05/21/24 19:36 Review of Systems 2 Review of Systems: Constitutional : No Fever, No Chills ENT/Mouth : positive oral swelling, No Hoarseness, No Swallowing Difficulty Eyes: No Eye Pain, No Swelling, No Redness Cardiovascular : pos Chest Pain, No SOB Respiratory : pos Cough, No Sputum, No Wheezing, No Smoke Exposure, No Dyspnea Gastrointestinal : No Nausea, No Vomiting, No Diarrhea, No abdominal Pain Genitourinary : No Dysuria, No Urinary Frequency, No Hematuria Musculoskeletal : No joint pain, No Myalgias, No Joint Swelling Skin : No Skin Lesions, positive rash Neuro : No Weakness, No Numbness, No Headache All other systems reviewed and are negative [facility] Past Medical History Attestation statement: The following information was validated with the patient. Source: old records reviewed Medical History (Updated 05/21/24 @ 23:45 by Lana Butler DO) Asthma Social History Social History (Updated 05/21/24 @ 23:45 by Lana Butler DO) Patient Tobacco Use Status: Never used Tobacco Physical Exam 2 Vital Signs: Vital Signs: Last Vital Signs Temp 98 F 05/21/24 22:53 Pulse 60 05/21/24 22:53 Resp 19 05/21/24 22:53 BP 138/76 05/21/24 22:53 Pulse Ox 98 05/21/24 22:53 O2 Del Method Room Air 05/21/24 22:53 BMI result Body Mass Index 28.3 Appearance: Alert. Oriented X3. No acute distress. Eyes: Pupils equal, round and reactive to light. ENT: Pharynx normal. Neck: Normal inspection. Neck supple. CVS: Normal heart rate and rhythm. Pulses normal. Chest: ttp along costochondral border Respiratory: No respiratory distress. Breath sounds diminished and dry cough Abdomen: Soft and nontender. Skin: Skin warm and dry. Normal skin color. Normal skin turgor. Extremities: No lower extremity edema. No calf ttp Neuro: Oriented X 3. No motor deficit. No sensory deficit. CN2-12 intact Course Course Course Narrative: This is an RME: Additional HPI, ROS, PE not included below will be deferred to primary provider. RME assessment and note performed by: Kathryn Pang PA-C This is a 20-ioys-ebh-female who presents to the ER with complaints of chest pain, shortness of breath x 1 day. Reports that for 1 week she has had fevers, chills, cough, and congestion. +body aches Plan: Labs, EKG, cxr, viral swabs Medical Decision Making Medical Decision Making [facility] Narrative: 38 yo female with PMH of asthma recent URIs at this time c/o chest tightness but she is diminished throughout, not labored, has no ACS risk factors, chest wall is tender suspect costochondritis, PERC negative doubt VTE, laughing making joking pulses intact doubt dissection at this time suspect post viral syndrome will start on albuterol and medications for chest wall ttp. Overall well appearing. Differential Diagnosis Differential Diagnoses: The differential diagnosis associated with the presentation includes asthma, URI, costochondritis PERC negative doubt VTE Admission/Observation Consideration of admission/observation: Escalation of care including admission/observation considered stable VS at this time not toxic Lab Data [facility] Lab Attestation statement: I reviewed the patient's lab results. 05/21/24 20:37 05/21/24 20:37 Labs: Lab Results 05/21/24 Range/Units 20:37 WBC 6.4 (4.8-10.8) X10*3/uL RBC 3.59 L (4.20-5.50) X10*6/uL Hgb 10.6 L (12.0-16.0) g/dl Hct 32.3 L (37.0-47.0) % MCV 90.0 (80.0-98.0) fL MCH 29.5 (27.0-33.0) pg MCHC 32.8 (31.0-35.0) g/dl RDW 12.5 (11.0-16.0) % Plt Count 279 (160-400) X10*3/uL MPV 9.9 (9.4-12.3) fL Immature Gran % (Auto) 0.3 (0.0-0.4) % Neut % (Auto) 50.4 (45-73) % Lymph % (Auto) 40.7 H (20-40) % [place] % (Auto) 7.2 (2-11) % Eos % (Auto) 1.1 (0-4) % Baso % (Auto) 0.3 (0-2) % Lymph # (Auto) 2.6 (1.2-4.9) X10*3/uL [place] # (Auto) 0.5 (0.1-1.2) X10*3/uL Eos # (Auto) 0.1 (0.0-0.4) X10*3/uL Baso # (Auto) 0.0 (0.0-0.2) X10*3/uL Abs Immat Gran (auto) 0.02 (0.00-0.03) X10*3/uL Absolute Neuts (auto) 3.2 (2.0-8.3) x10*3/uL Absolute Nucleated RBC 0.000 (0.0-0.012) X10*3/uL Nucleated RBC % (auto) 0.0 (0.0-0.2) /100WBC Sodium 144 (135-145) mmol/L Potassium 4.0 (3.3-5.1) mmol/L Chloride 108 (96-108) mmol/L Carbon Dioxide 29 (22-29) mmol/L Anion Gap 11 L (12-20) BUN 10 (9-16) mg/dL Creatinine 0.72 (0.5-1.4) mg/dL Estim Creat Clear Calc 88.7 Estimated GFR > 60 Random Glucose 84 (60-115) mg/dL Calcium 8.6 D (8.4-10.2) mg/dL Total Bilirubin 0.3 (0.0-1.0) mg/dL Direct Bilirubin 0.1 (0.0-0.5) mg/dL AST 25 (5-31) U/L ALT 28 (0-31) U/L Alkaline Phosphatase 57 (39-117) U/L Troponin I High Sens < 2.7 (<3.5-17.0) ng/L Total Protein 7.0 (6.5-8.0) g/dL Albumin 4.1 (3.5-5.0) g/dL Influenza Type A (PCR) NEGATIVE (Negative) Influenza Type B (PCR) NEGATIVE (Negative) RSV RNA Qual (PCR) NEGATIVE (Negative) SARS-CoV-2 RNA (RT-PCR) NEGATIVE (Negative) Independent Interpretation I performed an independent interpretation of an: EKG and Plain X-Ray (normal ) Interpretation: Rate: 63 Rhythm: NSR [place]: normal Normal P waves. Normal DIVINA. Normal QRS complex. ST T wave : inverted t waves V1, no CITLALLI qTC: 399 prior studies: no acute ischemia The study has been interpreted contemporaneously by me. . Radiology Impression Discussion of test interpretation with radiology: I have reviewed the radiologist's reading. Independent Historian Clinical information obtained from an independent historian. History obtained from or confirmed by: Friend External Record Review External record reviewed: Outpatient record Prescription Management I considered prescription management with: Other Discharge Plan Discharge Clinical Impression: Acute costochondritis, Acute upper respiratory infection Patient Disposition: Home, Self-Care Instructions: Costochondritis (ED), Upper Respiratory Infection (ED) Additional Instructions: at this time labs reassuring, EKG reassuring chest xray no pneumonia continue to take your nebulizers return for any worsening symptoms or concerns. no flu, covid, rsv Prescriptions: New cyclobenzaprine 10 mg tablet 10 mg PO TID PRN (Reason: muscle spasm) Qty: 20 0RF albuterol sulfate 2.5 mg /3 mL (0.083 %) solution for nebulization 2.5 mg inhalation Q4-6H PRN (Reason: bronchospasm) Qty: 75 0RF No Action ketorolac 10 mg tablet 10 mg PO TID PRN (Reason: pain) 5 Days Qty: 15 0RF lidocaine 5 % adhesive patch,medicated 1 patch topical DAILY PRN (Reason: pain) Qty: 15 0RF Rx Instructions: leave on most painful area for up to 12 hrs ibuprofen 600 mg tablet 600 mg PO Q6H PRN (Reason: pain) Qty: 30 0RF acetaminophen [Tylenol Extra Strength] 500 mg tablet 500 mg PO Q6H PRN (Reason: pain) Qty: 30 0RF cyclobenzaprine 10 mg tablet 10 mg PO TID PRN (Reason: muscle spasm) Qty: 14 0RF acetaminophen [Tylenol] 325 mg tablet 650 mg PO Q6H PRN (Reason: pain) Qty: 30 0RF Print Language: Zambian
[2024-05-21 20:44] LABS: MANUAL DIFF FLAG NO
[2024-05-21 20:54] LABS: Basophils Percent Auto 0.3 % (0-2); Eosinophils Absolute Auto 0.1 X10*3/uL (0.0-0.4); Eosinophils Percent Auto 1.1 % (0-4); Hematocrit 32.3 % (37.0-47.0); Hemoglobin 10.6 g/dl (12.0-16.0); Imm Gran Abs Auto 0.02 X10*3/uL (0.00-0.03); Imm Gran Pct Auto 0.3 % (0.0-0.4); Lymphocytes Absolute Auto 2.6 X10*3/uL (1.2-4.9); Lymphocytes Percent Auto 40.7 % (20-40); Mean Corpuscular HGB Conc 32.8 g/dl (31.0-35.0); Mean Corpuscular Hemoglobin 29.5 pg (27.0-33.0); Mean Platelet Volume 9.9 fL (9.4-12.3); Monocytes Absolute Auto 0.5 X10*3/uL (0.1-1.2); Monocytes Percent Auto 7.2 % (2-11); Neutrophils Absolute Auto 3.2 x10*3/uL (2.0-8.3); Neutrophils Percent Auto 50.4 % (45-73); Platelet Count 279 X10*3/uL (160-400); Red Blood Count 3.59 X10*6/uL (4.20-5.50); Red Cell Distribution Width 12.5 % (11.0-16.0); White Blood Count 6.4 X10*3/uL (4.8-10.8)
[2024-05-21 21:00] LABS: Alanine Aminotransferase 28 U/L (0-31); Albumin Level 4.1 g/dL (3.5-5.0); Alkaline Phosphatase 57 U/L (39-117); Anion Gap 11 (12-20); Aspartate Amino Transferase 25 U/L (5-31); Bilirubin Direct 0.1 mg/dL (0.0-0.5); Bilirubin Total 0.3 mg/dL (0.0-1.0); Blood Urea Nitrogen 10 mg/dL (9-16); Calcium 8.6 mg/dL (8.4-10.2); Carbon Dioxide 29 mmol/L (22-29); Chloride 108 mmol/L (96-108); Creatinine Clr Calc Pharmacy 88.7; Estimated Glomerular Filt Rate > 60; Glucose Random 84 mg/dL (60-115); Sodium 144 mmol/L (135-145)
[2024-05-21 21:07] LABS: Troponin-I High Sensitivity < 2.7 ng/L (<3.5-17.0)
[2024-05-21 21:22] LABS: Influenza A PCR NEGATIVE (Negative); Influenza B PCR NEGATIVE (Negative); Resp Syncy Virus RNA Qual PCR NEGATIVE (Negative); SARS COV2 PCR INHOUSE NEGATIVE (Negative)
[2024-05-21 22:53] VITALS: BP 138/76; PULSE 60; RESP 19; TEMP 36.6; O2SAT 98
[2024-05-21] MEDS: Albuterol/Iprat 2.5/0.5MG 3 ML AMPUL.NEB INHALE (23:45)
[2024-05-21 23:46] VITALS: PULSE 58; RESP 16; O2SAT 98
[2024-05-22 00:22] VITALS: BP 154/76; PULSE 68; RESP 16; TEMP 36.1; O2SAT 99
[2024-05-22 00:23] VITALS: BP 154/76; PULSE 68; RESP 16; TEMP 36.1; O2SAT 99
== END 2024-05-22 00:24 | disposition home or self-care (01) ==
PROVIDERS: Physician Assistant Medical; Emergency Provider Emergency Medicine; PCP Internal Medicine
DX: J06.9 Acute upper respiratory infection, unspecified (principal); M94.0 Chondrocostal junction syndrome [Tietze]; R07.9 Chest pain, unspecified
CPT/HCPCS: 0241U; 36415; 71046; 80048; 80076; 84484; 85025; 93005; 94640; 99284

== ENCOUNTER → 2024-05-21 18:37 | Outpatient (BNV) | payer MEDICAID, SELFPAY | PROVIDERS: Emergency Provider Emergency Medicine; PCP Internal Medicine; Visit Provider Internal Medicine Cardiovascular Disease | DX: I49.9 Cardiac arrhythmia, unspecified (principal) | CPT/HCPCS: 93010 ==

== ENCOUNTER → 2024-05-21 19:40 | Outpatient (BNV) | payer MEDICAID, SELFPAY | PROVIDERS: PCP Internal Medicine; Visit Provider Radiology Diagnostic Radiology | DX: R07.9 Chest pain, unspecified (principal) | CPT/HCPCS: 71046 ==

== ENCOUNTER 2025-01-22 10:56 | Outpatient (REF) | payer MEDICAID, SELFPAY ==
--- OUTSIDE RECORDS SUMMARY | 2025-01-21 14:30 | XMS_ITS | Encounter Summary ---
Author Organization [employer] Address [address] [facility] [address] [place] [address] Care Team Providers Care Finishing Area Supervisor Name Role Phone Jared Castorena MD Primary Care Prov ider Reason for Referral * Imaging (Routine) - Authorized Specialty Diagnoses / Procedures Referred By Contac t Referred To Contact Radiology Diagnoses Encounter for screening mammogram for malignant neoplasm of breast Procedures BI Mammogram Screening Tomosynthesis Bilateral Jared Castorena MD [address] [place] [id number] Phone: tel: fax: [address] Phone: tel: fax: Referral ID Status Reason Start Date Expiration Date V isits Requested Visits Authorized [id number] Authorized 01/21/2025 01/21/2026 1 1 Encounter Details Date Type Department Care Team (Late st Contact Info) Description 01/21/2025 2:30 PM EDT Office Visit [facility] [address], [place] [phone] Jared Castorena MD [address] [place] [address] Overweight (Primary Dx); Encounter for screening mammogram for malignant neoplasm of breast; Neck pain; Encounter for immunization Social History Tobacco Use Types Packs/Day Years Used Date Smoking Tobacco: Every Day Cigarettes Smokeless Tobacco: Never Depression Answer Date Recorded Patient Health Questionnaire-9 Score 8 01/21/2025 Patient Health Questionnaire-9 Score 8 01/21/2025 Last PHQ-9: Questionnaire Data Not on file 0 01/21/2025 Housing Stability Answer Date Recorded What is your housing situation today? I have suraj justice 03/05/[address] you li ve. Do you have problems with any of the following? None of the above 03/05/2024 Food Insecurity Answer Date Recorded Within the past 12 months, y ou worried that your food would run out before you got money to buy more: Sometimes True 2023 Within the past 12 months,th e food you bought just didn't last and you didn't have enough money to get more: Sometimes True 04/04/2024 Transportation Answer Date Recorded In the past 12 months, has l ack of transportation kept you from medical appts, meetings, work or from getting things needed for daily living? No 03/05/2024 Utilities Answer Date Recorded In the past 12 months, has t he electric, gas, oil or water company threatened to shut off services in your home? No 03/05/2024 Depression Answer Date Recorded Patient Health Questionnaire-2 Score 2 01/21/2025 Internet Access Answer Date Recorded Internet Access Q1 Yes 03/05/2024 Internet Access Q2 Not on file 03/05/2024 Comments Unknown Sex and Gender Information Value Date Recorded Sex Assigned at Female 03/01/2022 10:21 AM EDT Legal Sex Female 10:21 AM EDT Gender Identity Female 03/01/2022 10:21 AM EDT Sexual Orientation Straight 03/01/2022 10 :21 AM EDT documented as of this encounter Last Filed Vital Signs Vital Sign Reading Time Taken Comments Blood Pressure 112/68 01/21/2025 2:39 PM EDT Pulse 88 01/21/2025 2:39 PM EDT Temperature 36.3 C (97.4 F) 01/21/2025 2:39 PM EDT Respiratory Rate 20 01/21/2025 2:39 PM EDT Oxygen Saturation - - Inhaled Oxygen Concentration - - Weight 65.3 kg (144 lb) 01/21/2025 2:39 PM EDT Height 154.9 cm (5' 1 ) 01/21/2025 2:39 PM EDT Body Mass Index 27.21 01/21/2025 2:39 PM EDT documented in this encounter Functional Status * Over the past 2 weeks, how often have you been bothered by any of the following problems? Question Answer Date of Assessment Author Patient Health Questionnaire-2 Score 2 01/01 2:41 PM DALET Irma Carl MA * Little interest or pleasure in doing things Answer Date of Assessment Author Several days 01/21/2025 2:41 PM EDT Mally Carl MA * Feeling down, depressed, or hopeless Answer Date of Assessment Author Several days 01/21/2025 2:41 PM EDT Mally Carl MA * Trouble falling or staying asleep, or sleeping too much Answer Date of Assessment Author More than half the days 01/21/2025 2:41 PM EDT Irma Wei MA * Feeling tired or having little energy Answer Date of Assessment Author Several days 01/21/2025 2:41 PM EDT Mlaly Carl MA * Poor appetite or overeating Answer Date of Assessment Author Several days 01/21/2025 2:41 PM DALET Mally Carl MA * Feeling bad about yourself - or that you are a failure or have let yourself or your family down Answer Date of Assessment Author Several days 01/21/2025 2:41 PM Mally Aponte MA * Trouble concentrating on things, such as reading the newspaper or watching television Answer Date of Assessment Author Several days 01/21/2025 2:41 PM DALET Mally Carl MA * Moving or speaking so slowly that other people could have noticed? Or the opposite - being so fidgety or restless that you have been moving around a lot more than usual. Answer Date of Assessment Author Not at all 01/21/2025 2:41 PM Mally Aponte MA * Thoughts that you would be better off or hurting yourself in some way Answer Date of Assessment Author Not at all 01/21/2025 2:41 PM Mally Aponte MA * Patient Health Questionnaire-9 Score Answer Date of Assessment Author 8 01/21/2025 2:41 PM DALET Mally Carl MA * How difficult have these problems made it for you to do your work, take care of things at home, or get along with other people? Answer Date of Assessment Author Not difficult at all 01/21/2025 2:41 PM EDT Irma Pimentel MA documented as of this encounter Plan of Treatment Scheduled Orders Name Type Priority Associated Diagnoses Orde r Schedule CBC auto differential Lab Routine Overweight Expected: 01/21/2025 (Approximate), Expires: 01/21/2026 Comprehensive Metabolic Panel Lab Routine Overweight Expected: 01/21/2025 (Approximate), Expires: 01/21/2026 Lipid Panel, Standard Lab Routine Overweight Expected: 01/21/2025 (Approximate), Expires: 01/21/2026 TSH W/Reflex to FT4 Lab Routine Overweight Expected: 01/21/2025 (Approximate), Expires: 01/21/2026 BI Mammogram Screening Tomosynthesis Bilateral Imaging Routine Encounter for screening mammogram for malignant neoplasm of breast Expected: 01/21/2025, Expires: 03/23/2026 XR Cervical Spine 1 View Imaging Routine Neck pain Expected: 01/21/2025, Expires: 01/21/2026 documented as of this encounter Visit Diagnoses Diagnosis Overweight- Primary Encounter for screening mammogram for malignant neoplasm of breast Neck pain Cervicalgia Encounter for immunization documented in this encounter Additional Health Concerns Assessment Noted Time PHQ-9 Depression Total Score: 8 01/22/20 25 2:41 PM EDT documented as of this encounter Care Teams Finishing Area Supervisor Relationship Specialty Start Date End Date Jared Castorena MD [address] [place] [phone] PCP - General Internal Medicine 09/21/19 documented as of this encounter
--- OUTSIDE RECORDS SUMMARY | 2025-01-22 13:32 | XMS_ITS | Clinical Summary ---
Author Organization [employer] Address [address] [facility] 7t [place] [address] Care Team Providers Care Emergency Department Physician Name Role Phone Jared Castorena MD Primary Care Prov ider Allergies Active Allergy Reactions Criticality Noted Date Comments Penicillins Rash Low 11/15/2012 Medications Lidoderm 5 % patchIndications: Muscle spasm APPLY 1 PATCH TO SKIN. LEAVE ON FOR 12 HOURS, THEN OFF FOR 12 HOURS DIRECTED. 30 patch 1 3 Active fluticasone (Flonase) 50 MCG/ACT nasal spray INHALE 1 - 2 SPRAYS IN EACH NOSTRIL ONCE DAILY IN THE MORNING 48 g 4 Active hydrocortisone 0.5 % cream APPLY TO THE AFFECTED AREA(S) TWICE DAILY 28.4 g 4 4 Active albuterol (2.5 MG/3ML) 0.083% nebulizer solutionIndicatio ns:Mild intermittent asthma, unspecified whether complicated INHALE 3ml BY MOUTH NEBULIZER THREE TIMES DAILY 90 mL 4 Active Respiratory Therapy Supplies (Nebulizer/Tubing /Mouthpiece) kit To be used with Nebulizer 1 kit 4 Active baclofen (Lioresal) 10 MG tablet Take 1 tablet (10 mg) by mouth 3 times daily. 90 tablet 11 4 04/12/20 25 Active naproxen sodium (Anaprox) 550 MG tablet take 1 tablet by oral route every 12 hours as needed 180 tablet 3 4 Active Ventolin HFA 108 (90 Base) MCG/ACT inhaler INHALE ONE PUFF BY MOUTH EVERY SIX HOURS 18 g 3 5 Active Multiple Vitamin (Multivitamin) tablet TAKE ONE TABLET DAILY 90 tablet 4 5 Active hydrOXYzine HCl (Atarax) 25 MG tablet TAKE ONE TABLET THREE TIMES DAILY IN THE MORNING, AT NOON, AND AT BEDTIME NEEDED FOR ITCHING 90 tablet 3 5 Active loratadine (Claritin) 10 MG tabletIndications :Seasonal allergies TAKE 1 TABLET BY MOUTH EVERY DAY 90 tablet 3 5 Active buPROPion XL (Wellbutrin XL) 150 MG 24 hr tablet Take 1 tablet (150 mg) by mouth Once per day. Do not crush, chew, or split. 30 tablet 11 5 01/22/20 26 Active Active Problems Problem Noted Date Diagnosed Date Open fracture of tooth 05/23/2024 Mild intermittent asthma with exacerbation 05/08 Assessment & Plan (05/08/2024 6:17 PM EST): Prednisone rx sent should wheezing increase, Pt aware to take if requiring prn inhaler more frequently Should pt develop fever chest pain will need to be reassessed Should pt start prednisone take as prescribed Viral upper respiratory tract infection 05/08/19 25 Assessment & Plan (05/08/2024 6:16 PM EST): Poct tests for covid flu neg Supportive measure reviewed, Continue with inahlers prn Encouraged avoiding smoking Chronic pain syndrome 03/13/2024 Assessment & Plan (05/20/2024 3:05 PM EST): Encouraged stretching exercise, told to apply cold/warm pads, will prescribe baclofen, Assessment & Plan (03/13/2024 6:53 PM EST): She has negative rheumatologic workup previously done, most likely fibromyalgia, she has multiple tender points, discussed condition, will prescribe Cymbalta, offered acupuncture services, encouraged exercise including yoga. Mild intermittent asthma 03/13/2024 Assessment & Plan (03/13/2024 6:54 PM EST): Will renew albuterol and will send new nebulizer Cough 10/17/2023 Large breasts 10/17/2023 Mood disorder 10/17/2023 Uncomplicated asthma 10/17/2023 Dental plaque 02/03/2023 Encounters Date Type Department Care Team Description 01/21/2025 2:30 PM EDT Office Visit [facility] [address] [place] [address] Jared Castorena MD Overweight (Primary Dx); Encounter for screening mammogram for malignant neoplasm of breast; Neck pain; Encounter for immunization 01/21/2025 Travel 01/18/2025 Telephone [facility] [address] [place] [address] Jared Castorena MD chart prep 10/24/2024 Telephone [facility] [address] [place] [address] Jared Castorena MD Home Care Services (I called the patient, regarding an application for AFC services from [facility]. I informed her, per the forms nurse, that she does not qualify for AFC services, because she does not need 24/7 care. She may qualify for [employer]ET [employer]PER[employer]ENDENT services. I asked if she would like to be referred, and she stated that she would like to be referred to [facility]. I informed her that once the referral is sent, she will receive a call to schedule an evaluation. She verbalized understanding.) from Last 3 Months Immunizations Immunization Administration Dates Next Due Influenza, seasonal, injectable, preservative fr ee 01/21/2025 Social History Tobacco Use Types Packs/Day Years Used Date Smoking Tobacco: Every Day Cigarettes Smokeless Tobacco: Never Tobacco Cessation:Ready to Q uit: Not Asked; Counseling Given: Not Answered Depression Answer Date Recorded Patient Health Questionnaire-9 [...] got money to buy more: Sometimes True 12/04/ 2024 Within the past 12 months,th e food [...] Orientation Straight 03/01/2022 10 :21 AM EDT Last Filed Vital Signs Vital Sign Reading Time Taken Comments Blood Pressure 112/68 01/21/2025 2:39 PM EDT Pulse 88 01/21/2025 2:39 PM EDT Temperature 36.3 C (97.4 F) 01/21/2025 2:39 PM EDT Respiratory Rate 20 01/21/2025 2:39 PM EDT Oxygen Saturation 95% 05/08/2024 2:33 PM EST Inhaled Oxygen Concentration - - Weight 65.3 kg (144 lb) 01/21/2025 2:39 PM EDT Height 154.9 cm (5' 1 ) 01/21/2025 2:39 PM EDT Body Mass Index 27.21 01/21/2025 2:39 PM EDT Plan of Treatment Health Maintenance Due Date Last Done Comments Family Planning (PISQ) 11/15/1999 HPV Vaccines (1 - 3-dose series) 11/15/1999 Hepatitis C Screening 2002 Hepatitis B Vaccines (1 of 3 - 19+ 3-dose series) 11/15/2003 Pneumococcal Vaccine: Pediatrics (0 to 5 Years) and At-Risk Patients (6 to 49) Years (1 of 2 - PCV) 11/15/2003 Cervical Cancer Screening 11/17/2022 HPV/Cotest 11/17/2022 11/17/2021 Pap Smear 11/17/2022 11/17/2021 Dental X-Ray: Full Mouth 08/02/2023 021, 01/10/2019, 01/12/2012, Additional history exists DTaP/Tdap/Td Vaccines (2 - Td or Tdap) 10/15/2024 10/15/2014 Dental X-Ray: Bitewings 10/17/2024 10/17/19 24, 02/03/2023, 07/31/2020, Additional history exists Mammogram 2024 Dental Oral Exam 11/21/2024 05/23/2024, 08/2022, 07/31/2020, Additional history exists Dental Prophylaxis 11/21/2024 05/23/2024, 0 11/08/2023, 02/03/2023, Additional history exists COVID-19 Vaccine ( - 2023- season) 2024 SDOH Screening 04/04/2025 04/04/2024 Tobacco Screening 06/26/2025 06/26/2024 Alcohol/Substance Use Screening 01/21/2026 01/21/2025 Depression Screening 01/21/2026 01/21/2025, 01/22/20 Disability Screening 01/21/2026 01/21/2025 Lipid Panel 03/10/2026 03/10/2021 Zoster Vaccines (1 of 2) 2034 RSV Patients and Patients Aged 60 years or older (1 - 1-dose 75+ series) 11/15/2059 HIV Screening Completed 11/10/2021, 03/10/2021 Influenza Vaccine Completed 01/21/2025, , 02/06/2021, Additional history exists HIB Vaccines Aged Out No longer eligi ble based on patient's age to complete this topic Hepatitis A Vaccines Aged Out No long er eligible based on patient's age to complete this topic IPV Vaccines Aged Out No longer eligi ble based on patient's age to complete this topic Meningococcal B Vaccine Aged Out No l onger eligible based on patient's age to complete this topic Meningococcal Vaccine Aged Out No noam dino eligible based on patient's age to complete this topic RSV under 20 months Aged Out No longe r eligible based on patient's age to complete this topic Rotavirus Vaccines Aged Out No longer eligible based on patient's age to complete this topic Procedures Procedure Name Priority Date/Time Associated Diagnosis Comments PROPHYLAXIS - ADULT Routine 05/23/2024 3 :00 PM EST Dental plaque PERIODIC ORAL EVALUATION - ESTABLISHED PATIENT Routine 05/23/2024 3:00 PM EST BITEWING - SINGLE RADIOGRAPHIC IMAGE Routine 10/17/2023 2:00 PM EDT Recurrent dental caries extending into dentin THINPREP IMAGING PAP AND HPV MRNA E6/E7, WITH CT/NG, TRICHOMONAS Routine 11/17/2021 4:23 PM EDT HIV 1/2 ANTIGEN/ANTIBODY, FOURTH GENERATION W/RFL Routine 11/10/2021 10:43 AM EDT LIPID PANEL, STANDARD Routine 03/10/2021 9:06 AM EST INTRAORAL - COMPLETE SERIES OF RADIOGRAPHIC IMAGES Routine 07/31/2020 12:00 AM EDT from Last 3 Months or Most Recently Relevant to Health Maintenance Results * (ABNORMAL) THINPREP TIS PAP AND HPV mRNA E6/E7, CT/NG, TRICH (11/17/2021 4:23 PM EDT) Chlamydia trachomatis RNA, TMA, Urogenital NOT DETECTED NOT DETECTED [facility] Clinical Information: None given [facility] COMMENT SEE COMMENT [facility] Comment: The analytical performance characteristics of this assay, when used to test SurePath(TM) specimens have been determined by [employer]. The modifications have not been cleared or approved by the FDA. This assay has been validated pursuant to the CLIA regulations and is used for clinical purposes. For additional information, please refer to https://education.[employer]/faq/RVI810 (This link is being provided for information/ educational purposes only.) COMMENT SEE COMMENT [facility] Comment: EXPLANATORY NOTE: The Pap is a screening test for cervical cancer. It is not a diagnostic test and is subject to false negative and false positive results. It is most reliable when a satisfactory sample, regularly obtained, is submitted with relevant clinical findings and history, and when the Pap result is evaluated along with historic and current clinical information. COMMENT: This Pap test has been evaluated with computer assisted technology. [facility] Housekeeper Cleaning Cooking: SEE COMMENT [facility] Comment: CXP, CT(ASCP) CT screening location: [place] [address] HPV nRNA E6/E7 Detected(A) Not Detected [facility] Comment: Methodology: Dope Dry House Operator-Mediated Amplification This assay detects E6/E7 viral messenger RNA (mRNA) from 14 high-risk HPV types (16,18,31,33,35,39,45,51,52,56,58,59,66,68). Cervical sources are required for HPV testing. If a vaginal source from a patient who has had a total hysterectomy with removal of cervix was submitted, please contact the testing laboratory for alternative testing options. For additional information, please refer to http://[employer]/faq/WYF951i4 (This link if provided for information/ educational purposes only.) Infection Shift in vaginal beto suggestive of bacterial vaginosis. [facility] Interpretation/Re sult: Negative for intraepithelial lesion or malignancy. [facility] LMP: [phone] [facility] Neisseria gonorrhoeae RNA, TMA, Urogenital NOT DETECTED NOT DETECTED [facility] PATHOLOGIST: SEE COMMENT [facility] Comment: Ashley Bradford M.D. , Board Certified in Anatomic and Clinical Pathology, Cytopathology and Immunopathology (electronic signature) Prev. BX: NONE GIVEN [facility] Prev. PAP: NONE GIVEN [facility] Review Housekeeper Cleaning Cooking: SEE COMMENT [facility] Comment: RXB, CT(ASCP) CT screening location: [place] [address] SOURCE: None given [facility] Statement Of Adequacy: SEE COMMENT [facility] Comment: Satisfactory for evaluation. Endocervical/transformation zone component absent. Trichomonas vaginalis, QL, TMA, PAP Vial NOT DETECTED NOT DETECTED [facility] Comment: The analytical performance characteristics of this assay have been determined by [employer]. The modifications have not been cleared or approved by the FDA. This assay has been validated pursuant to the CLIA regulations and is used for clinical purposes. For additional information, please refer to http://education.[employer]/ faq/Trichomonastma (This link is being provided for information/ educational purposes only.) 11/17/2021 4:23 PM EDT Sylvie MILAN LAB PATHOLOGY ORDERABLES Final Result Performing Organization Address [facility] de Phone Number [facility] [address] [place] [address], * HIV 1/2 ANTIGEN/ANTIBODY,FOURTH GENERATION W/RFL (11/10/2021 10:43 AM EDT) Pathologist [facility] HIV-1/2 ANTIGEN AND ANTIBODIES, 4TH GENERATION W/ REFLEX NON-REACT CHRISTOPHER NON-REACT CHRISTOPHER [facility] Comment: HIV-1 antigen and HIV-1/HIV-2 antibodies were not detected. There is no laboratory evidence of HIV infection. PLEASE NOTE: This information has been disclosed to you from records whose confidentiality may be protected by state law. If your state requires such protection, then the state law prohibits you from making any further disclosure of the information without the specific written consent of the person to whom it pertains, or as otherwise permitted by law. A general authorization for the release of medical or other information is NOT sufficient for this purpose. For additional information please refer to http://education.[employer]/faq/TCM790 (This link is being provided for informational/ educational purposes only.) The performance of this assay has not been clinically validated in patients less than 2 years old. 11/10/2021 10:4 3 AM EDT Jared Pollack MD LAB BLOOD ORDERABL ES Final Result Performing Organization Address [facility] Co de Phone Number [facility] [address] [place] [address], * (ABNORMAL) LIPID PANEL, STANDARD (03/10/2021 9:06 AM EST) Chol/HDLC Ratio 4.7 <5.0 (calc) [facility] Cholesterol, Total 182 <200 mg/dL [facility] HDL Cholesterol 39(L) > OR = 50 mg/dL [facility] LDL Cholesterol 110(H) mg/dL (calc) [facility] Comment: Reference range: <100 Desirable range <100 mg/dL for primary prevention; <70 mg/dL for patients with CHD or diabetic patients with > or = 2 CHD risk factors. LDL-C is now calculated using the Balbina calculation, which is a validated novel method providing better accuracy than the Friedewald equation in the estimation of LDL-C. [place] SS et al. MALIKA. 2013;310(19): 1882-0514 (http://education.Scoop.it/faq/TMM788) Non-HDL Cholesterol 143(H) <130 mg/dL (calc) [facility] Comment: For patients with diabetes plus 1 major ASCVD risk factor, treating to a non-HDL-C goal of <100 mg/dL (LDL-C of <70 mg/dL) is considered a therapeutic option. Triglycerides 213(H) <150 mg/dL [facility] Comment: If a non-fasting specimen was collected, consider repeat triglyceride testing on a fasting specimen if clinically indicated. Tutu et al. J. of Clin. Lipidol. 2015;9:129-169. 03/10/2021 9:06 AM EST Jared Pollack MD LAB BLOOD ORDERABL ES Final Result [facility] [address] from Last 3 Months or Most Recently Relevant to Health Maintenance Insurance [employer] [place] ST[place] ADULT Care Teams Emergency Department Physician Relationship Specialty Start Date End Date Jared Castorena MD [address] [place] [address] PCP - General Internal Medicine 09/21/19
--- OUTSIDE RECORDS SUMMARY | 2025-01-22 13:32 | XMS_ITS | Encounter Summary ---
Author Organization [employer] Address [address] [facility] 7 [place] [address] Care Team Providers Care Heater Furnace Name Role Phone Jared Castorena MD Primary Care Prov ider Reason for Visit * Reason Onset Date Comments chart prep 01/18/2025 Encounter Details Date Type Department Care Team ([facility] Contact Info) Description 01/18/2025 Telephone [facility]S [address] [place], [place] [phone] Jared Castorena MD [address] [place] [address] chart prep Social History Tobacco Use Types Packs/Day Years Used Date Smoking Tobacco: Every Day Cigarettes Smokeless Tobacco: Never Housing Stability Answer Date Recorded What is [...] off services in your home? No 03/05/2024 Internet Access Answer Date Recorded Internet Access Q1 Yes 03/05/2024 Internet Access Q2 Not on file 03/05/2024 Comments Unknown Sex and Gender Information Value Date Recorded Sex Assigned at Female 03/01/2022 10:21 AM EDT Legal Sex Female 10:21 AM EDT Gender Identity Female 03/01/2022 10:21 AM EDT Sexual Orientation Straight 03/01/2022 10 :21 AM EDT documented as of this encounter Miscellaneous Notes * Telephone Encounter - Irma Carl MA - 01/18/2025 2:00 PM EDT Chart Prep Labs: done Images: done Referrals: not applicable Vaccines due: Covid, Flu, PCV20, Hep B, HPV, and DTAP Screenings: mammogram and pap smear Overdue care gaps: SBIRT, PHQ-9, and Disability screen documented in this encounter Plan of Treatment Not on file documented as of this encounter Visit Diagnoses Not on filedocumented in this encounter Care Teams Heater Furnace Relationship Specialty Start Date End Date Jared Castorena MD [address] [place] [id number] PCP - General Internal Medicine 09/21/19 documented as of this encounter
--- OUTSIDE RECORDS SUMMARY | 2025-01-22 13:32 | XMS_ITS | Encounter Summary ---
Author Organization [employer] Address [address] [facility] 7 [place] [address] Care Team Providers Care Kst Operator Name Role Phone aJred Castorena MD Primary Care Prov ider Encounter Details Date Type Department Care Team (Latest Contact Info) Description 01/05/2022 Abstract [facility] CONVERSIONS Dental, Provider, DDS Social History Tobacco Use Types Packs/Day Years Used Date Smoking Tobacco: Never Assessed Comments Unknown Sex and Gender Information Value Date Recorded Sex Assigned at Female 03/01/2022 10:21 AM EDT Legal Sex Female 10:21 AM EDT Gender Identity Female 03/01/2022 10:21 AM EDT Sexual Orientation Straight 03/01/2022 10 :21 AM EDT documented as of this encounter Plan of Treatment Not on file documented as of this encounter Visit Diagnoses Not on filedocumented in this encounter Care Teams Kst Operator Relationship Specialty Start Date End Date Jared Castorena MD [address] [place] [address] PCP - General Internal Medicine 09/21/19 documented as of this encounter
--- OUTSIDE RECORDS SUMMARY | 2025-01-22 13:32 | XMS_ITS | Clinical Summary ---
Author Organization [facility] it Address [address] [place] [address] Care Team Providers Care Nut Grinder Name Role Phone Unavailable Primary Care Provider Unavailabl e Social History Tobacco Use Types Packs/Day Years Used Date Smoking Tobacco: Never Assessed Comments Unknown Sex and Gender Information Value Date Recorded Sex Assigned at Not on file Legal Sex Female 6:52 PM EST Gender Identity Not on file Sexual Orientation Not on file Plan of Treatment Health Maintenance Due Date Last Done Comments Breast Cancer Screening 1984 DTaP,Tdap,and Td Vaccines (1 - Tdap) 11/15/2003 Hepatitis B Vaccines (1 of 3 - 19+ 3-dose series) 11/15/2003 Cervical Cancer Screening: P ap Smear 2005 Depression Screening 05/02/2024 COVID-19 Vaccine (1 - 2023-2 5 season) 2024 Influenza Vaccine (#1) 2024 RSV Immunization Adult Patie nts (1 - 1-dose 75+ series) 11/15/2059 HIB Vaccines Aged Out No longer eligi ble based on patient's age to complete this topic HPV Vaccines Aged Out No longer eligi ble based on patient's age to complete this topic Hepatitis A Vaccines Aged Out No long er eligible based on patient's age to complete this topic IPV Vaccines Aged Out No longer eligi ble based on patient's age to complete this topic MMR Vaccines Aged Out No longer eligi ble based on patient's age to complete this topic Meningococcal ACWY Vaccine Aged Out N o longer eligible based on patient's age to complete this topic Meningococcal B Vaccine Aged Out No l onger eligible based on patient's age to complete this topic Pneumococcal Vaccine: Pediat rics (0 to 5 Years) and At-Risk Patients (6 to 49 Years) Aged Out No longer eligible b ased on patient's age to complete this topic RSV Immunization Patients Un katy 20 months Aged Out No longer eligible b ased on patient's age to complete this topic Varicella Vaccines Aged Out No longer eligible based on patient's age to complete this topic
--- OUTSIDE RECORDS SUMMARY | 2025-01-22 13:32 | XMS_ITS | Encounter Summary ---
Author Organization [employer] Address [address] [facility] [address] [place] [address] Care Team Providers Care Driver License Technician Name Role Phone Jared Castorena MD Primary Care Prov ider Reason for Visit * Reason Comments Med Refill Encounter Details Date Type Department Care Team (Late st Contact Info) Description 07/26/2022 Refill [facility] [address] [place], [place] [phone] Jared Castorena MD [address] [place] [address] Muscle spasm Social History Tobacco Use Types Packs/Day Years [...] as of this encounter Visit Diagnoses Diagnosis Muscle spasm Spasm of muscle documented in this encounter Care Teams Driver License Technician Relationship Specialty Start Date End Date Jared Castorena MD [address] [place] [address] PCP - General Internal Medicine 09/21/19 documented as of this encounter
--- OUTSIDE RECORDS SUMMARY | 2025-01-22 13:32 | XMS_ITS | Encounter Summary ---
Author Organization [employer] Address [address] [facility] [address] [place] [address] Care Team Providers Care Automation Engineering Manager Name Role Phone Jared Castorena MD Primary Care Prov ider Reason for Visit * Reason Comments Med Refill Encounter Details Date Type Department Care Team (Late st Contact Info) Description 08/18/2023 Refill [facility] [address] [place], [place] [phone] Jared Castorena MD [address] [place] [address] Seasonal allergies Social History Tobacco Use Types Packs/Day Years Used Date Smoking Tobacco: Former Cigarettes Smokeless Tobacco: Never Comments Unknown Sex and Gender Information Value Date Recorded Sex Assigned at Female 03/01/2022 10:21 AM EDT Legal Sex Female 10:21 AM EDT Gender Identity Female 03/01/2022 10:21 AM EDT Sexual Orientation Straight 03/01/2022 10 :21 AM EDT documented as of this encounter Plan of Treatment Not on file documented as of this encounter Visit Diagnoses Diagnosis Seasonal allergies Allergic rhinitis, cause unspecified documented in this encounter Care Teams Automation Engineering Manager Relationship Specialty Start Date End Date Jared Castorena MD [address] [place] [address] PCP - General Internal Medicine 09/21/19 documented as of this encounter
--- OUTSIDE RECORDS SUMMARY | 2025-01-22 13:32 | XMS_ITS | Encounter Summary ---
Author Organization [employer] Address [address] [facility] [address] [place] [address] Care Team Providers Care Medical Service Representative Name Role Phone Jared Castorena MD Primary Care Prov ider Encounter Details Date Type Department Care Team (Latest Contact Info) Description 07/31/2020 Abstract [facility] CONVERSIONS Dental, Provider, DDS Social History Tobacco [...] on filedocumented in this encounter Care Teams Medical Service Representative Relationship Specialty Start Date End Date Jared Castorena MD [address] [place] [address] PCP - General Internal Medicine 09/21/19 documented as of this encounter
--- OUTSIDE RECORDS SUMMARY | 2025-01-22 13:32 | XMS_ITS | Encounter Summary ---
Author Organization [employer] Address [address] [facility] [address] [place] [address] Care Team Providers Care Electrotype Finisher Name Role Phone Jared Castorena MD Primary Care Prov ider Encounter Details Date Type Department Care Team (Latest Contact Info) Description 09/07/2018 Abstract [facility] CONVERSIONS Dental, Provider, DDS Social [...] on filedocumented in this encounter Care Teams Electrotype Finisher Relationship Specialty Start Date End Date Jared Castorena MD [address] [place] [address] PCP - General Internal Medicine 09/21/19 documented as of this encounter
--- OUTSIDE RECORDS SUMMARY | 2025-01-22 13:32 | XMS_ITS | Encounter Summary ---
Author Organization [employer] Address [address] [facility] 7 [place] [address] Care Team Providers Care Recreational Specialist Name Role Phone Jared Castorena MD Primary Care Prov ider Reason for Visit * Reason Onset Date Comments Appointment Request 08/18/2023 Encounter Details Date Type Department Care Team ([facility] st Contact Info) Description 08/18/2023 Telephone [facility] [address] [place] [address] Jared Castorena MD [address] [place] [address] Appointment Request Social History Tobacco Use Types Packs/Day Years [...] encounter Miscellaneous Notes * Telephone Encounter - Yuni Claros - 08/18/2023 9:39 AM EDT Tc from pt requesting appt with PCP stated wanted to speak about multiple conditions, stated something is happening with her bones, need a pap and others. Please call twice or leave a detailed message. documented in this encounter Plan of Treatment Not on file documented as of this encounter Visit Diagnoses Not on filedocumented in this encounter Care Teams Recreational Specialist Relationship Specialty Start Date End Date SkinnerJared Jernigan MD [address] [place] [id number] PCP - General Internal Medicine 09/21/19 documented as of this encounter
--- OUTSIDE RECORDS SUMMARY | 2025-01-22 13:32 | XMS_ITS | Encounter Summary ---
Author Organization [employer] Address [address] [facility] [address] [place] [address] Care Team Providers Care Freight Loading Supervisor Name Role Phone Jared Castorena MD Primary Care Prov ider Encounter Details Date Type Department Care Team (Latest Contact Info) Description 01/21/2025 Travel Social History Tobacco Use Types Packs/Day Years [...] AM EDT documented as of this encounter Functional Status * Over the past 2 weeks, how often have you been bothered by any of the following problems? Question Answer Date of Assessment Author Patient Health Questionnaire-2 Score 2 01/01 2:41 PM EDT Irma Carl MA * Little interest or [...] 2:41 PM EDT Mally Carl MA * Poor appetite or overeating Answer Date of Assessment Author Several days 01/21/2025 2:41 PM EDT Mally Carl MA * Feeling bad about yourself - or that you are a failure or have let yourself or your family down Answer Date of Assessment Author Several days 01/21/2025 2:41 PM EDT Mally Carl MA * Trouble concentrating on things, such as reading the newspaper or watching television Answer Date of Assessment Author Several days 01/21/2025 2:41 PM EDT Mally Carl MA * Moving or speaking so slowly that other people could have noticed? Or the opposite - being so fidgety or restless that you have been moving around a lot more than usual. Answer Date of Assessment Author Not at all 01/21/2025 2:41 PM EDT Mally Carl MA * Thoughts that you would be better off or hurting yourself in some way Answer Date of Assessment Author Not at all 01/21/2025 2:41 PM EDT Mally Carl MA * Patient Health Questionnaire-9 Score Answer Date of Assessment Author 8 01/21/2025 2:41 PM EDT Mally Carl MA * How difficult have [...] Diagnoses Not on filedocumented in this encounter Additional Health Concerns Assessment Noted Time PHQ-9 Depression Total Score: 8 01/22/20 25 2:41 PM EDT documented as of this encounter Care Teams Freight Loading Supervisor Relationship Specialty Start Date End Date Jared Castorena MD [address] [place] [id number] PCP - General Internal Medicine 09/21/19 documented as of this encounter
--- OUTSIDE RECORDS SUMMARY | 2025-01-22 13:32 | XMS_ITS | Encounter Summary ---
Author Organization [employer] Address [address] [facility] 7t [place] [address] Care Team Providers Care Fire Ranger Name Role Phone Jraed Castorena MD Primary Care Prov ider Encounter Details Date Type Department Care Team (Late st Contact Info) Description 09/20/[address] [email or web address] [address] [place], [place] [phone] Jared Castorena MD [address] [place], [place] [phone] Social History Tobacco Use Types Packs/Day Years Used Date Smoking Tobacco: Never Assessed Comments Unknown Sex and Gender Information Value Date Recorded Sex Assigned at Female 03/01/2022 10:21 AM EDT Legal Sex Female 10:21 AM EDT Gender Identity Female 03/01/2022 10:21 AM EDT Sexual Orientation Straight 03/01/2022 10 :21 AM EDT COVID-19 Exposure Response Date Recorded In the last 10 days, have yo u been in contact with someone who was confirmed or suspected to have Coronavirus/COVID-19? No / Unsure 09/16/2022 1:04 PM EDT documented as of this encounter Plan of Treatment Not on file documented as of this encounter Visit Diagnoses Not on filedocumented in this encounter Care Teams Fire Ranger Relationship Specialty Start Date End Date Jared Castorena MD [address] [place] [address] PCP - General Internal Medicine 09/21/19 documented as of this encounter
--- OUTSIDE RECORDS SUMMARY | 2025-01-22 13:32 | XMS_ITS | Encounter Summary ---
Author Organization [employer] Address [address] [facility] 7t [place] [address] Care Team Providers Care Line Up Machine Operator Name Role Phone Jared Castorena MD Primary Care Prov ider Encounter Details Date Type Department Care Team ([facility] st Contact Info) Description 09/13/2022 Orders Only [facility] & [facility]S [address] [place], [place] [phone] Charu Garrido LPN Social History Tobacco Use Types Packs/Day Years [...] on filedocumented in this encounter Care Teams Line Up Machine Operator Relationship Specialty Start Date End Date Jared Castorena MD [address] [place] [address] PCP - General Internal Medicine 09/21/19 documented as of this encounter
--- OUTSIDE RECORDS SUMMARY | 2025-01-22 13:32 | XMS_ITS | Encounter Summary ---
Author Organization [employer] Address [address] [facility] [address] [place] [address] Care Team Providers Care Honeycomb Blanket Maker Name Role Phone Jared Castorena MD Primary Care Prov ider Encounter Details Date Type Department Care Team ([facility] st Contact Info) Description 09/15/2022 Orders Only [facility] MED & PEDS [address] [place], [place] [phone] Jared Castorena MD [address] [place], [place] [phone] Social History Tobacco Use Types Packs/Day Years [...] on filedocumented in this encounter Care Teams Honeycomb Blanket Maker Relationship Specialty Start Date End Date Jared Castorena MD [address] [place] [address] PCP - General Internal Medicine 09/21/19 documented as of this encounter
[2025-01-22 14:34] LABS: MANUAL DIFF FLAG NO
[2025-01-22 14:38] LABS: Hematocrit 36.6 % (37.0-47.0); Hemoglobin 11.6 g/dl (12.0-16.0); Imm Gran Abs Auto 0.03 X10*3/uL (0.00-0.03); Imm Gran Pct Auto 0.5 % (0.0-0.4); Lymphocytes Absolute Auto 1.6 X10*3/uL (1.2-4.9); Mean Corpuscular HGB Conc 31.7 g/dl (31.0-35.0); Mean Corpuscular Hemoglobin 28.9 pg (27.0-33.0); Mean Corpuscular Volume 91.0 fL (80.0-98.0); NRBC Abs Auto 0.000 X10*3/uL (0.0-0.012); NRBC Pct Auto 0.0 /100WBC (0.0-0.2); Platelet Count 315 X10*3/uL (160-400); Red Blood Count 4.02 X10*6/uL (4.20-5.50); White Blood Count 6.4 X10*3/uL (4.8-10.8)
[2025-01-22 15:01] LABS: Alanine Aminotransferase 40 U/L (0-31); Albumin Level 4.6 g/dL (3.5-5.0); Alkaline Phosphatase 66 U/L (39-117); Anion Gap 9 (12-20); Aspartate Amino Transferase 45 U/L (5-31); Blood Urea Nitrogen 9 mg/dL (9-16); Calcium 9.2 mg/dL (8.4-10.2); Carbon Dioxide 28 mmol/L (22-29); Chloride 106 mmol/L (96-108); Cholesterol 202 mg/dL (<200); Estimated Glomerular Filt Rate > 60; HDL Cholesterol 47 mg/dL (>40); Potassium 4.3 mmol/L (3.3-5.1); Sodium 139 mmol/L (135-145); Total Protein 7.4 g/dL (6.5-8.0); Triglycerides 240 mg/dL (<150)
== END 2025-01-22 10:57 | disposition home or self-care (01) ==
LOC: HO.CHCLDS 10:56
PROVIDERS: Visit Provider Internal Medicine
DX: E66.3 Overweight (principal)
CPT/HCPCS: 36415; 80053; 80061; 84443; 85025